=== PATIENT | female | born 1995 | race Caucasian/White ===

== ENCOUNTER 2022-08-14 16:48 | Emergency (ER) | payer OTHER ==
[~2022-08-14] VITALS: Ht 154.9 cm; Wt 80.7 kg
[2022-08-14 16:55] VITALS: BP 118/56
--- NOTE | 2022-08-14 17:04 | NUR ---
Patient being evaluated by DR VOGEL at TRIAGE ROOM.
[2022-08-14] MEDS ORDERED: METOCLOPRAMIDE 10 MG TAB PO ONE (17:15)
[2022-08-14] MEDS ORDERED: KETOROLAC 15 MG/ML VIAL IM ONE (17:15)
--- NOTE | 2022-08-14 17:23 | NUR ---
PT TAKEN TO X RAY
[2022-08-14 17:27] LABS: BASOPHILS % (AUTO) 0.3 % (0.0-2.0); EOSINOPHILS # (AUTO) 0.1 K/uL (0-0.4); EOSINOPHILS % (AUTO) 0.9 % (0.0-4.0); HEMATOCRIT 36.4 % (36-48); HEMOGLOBIN 12.5 g/dL (12.0-16.0); LYMPHOCYTES # (AUTO) 2.1 K/uL (2.5-16.5); LYMPHOCYTES % (AUTO) 22.3 % (20.5-51.1); MEAN CORPUSCULAR HEMOGLOBIN 31 pg (27-31); MEAN CORPUSCULAR HGB CONC 34 g/dL (33-37); MEAN CORPUSCULAR VOLUME 88.4 fL (80-94); MONOCYTES # (AUTO) 0.6 K/uL (0.8-1.0); MONOCYTES % (AUTO) 6.7 % (1.7-9.3); NEUTROPHILS # (AUTO) 6.7 K/uL (1.8-7.7); NEUTROPHILS % (AUTO) 69.8 % (42.2-75.2); PLATELET COUNT (AUTO) 261 K/uL (140-450); RED BLOOD CELL COUNT(AUTO) 4.12 MIL/uL (4.20-5.40); RED CELL DISTRIBUTION WIDTH 13.5 % (11.6-13.7); WHITE BLOOD COUNT (AUTO) 9.6 K/uL (4.8-10.8)
[2022-08-14 17:53] LABS: ALBUMIN 3.6 g/dL (3.4-5.0); ANION GAP 13.9 (8-16); ASPARTATE AMINOTRANSFERASE 14 U/L (15-37); CARBON DIOXIDE 24.7 mmol/L (21-32); CHLORIDE 106 mmol/L (98-107); CREATININE 0.9 mg/dL (0.6-1.3); GFR ARICAN-AMERICAN 95 mL/min (>90); GLUCOSE 96 mg/dL (74-106); POTASSIUM 3.6 mmol/L (3.5-5.1); SODIUM SERUM 141 mmol/L (136-145); TOTAL BILIRUBIN 0.4 mg/dL (0.0-1.0); UREA NITROGEN, BLOOD 10 mg/dL (7-18)
--- NOTE | 2022-08-14 18:00 | NUR ---
PT AMBULATED TO ROOM 7
--- NOTE | 2022-08-14 18:35 | NUR ---
27YO FEMALE PT BIBA C/O CHEST PAIN XTODAY. PT STATES HAVING 10/10 TIGHT CHEST PAIN, SOB , NAUSEA AND NUMBING. STATES RELIEF AT THIS TIME - /10 . STATES HAVING EPISODES WHEN HAVING ANXIETY THAT WILL LAST ABOUT 1 HR. DENIES V/D, FEVER OR CHILLS. PT AAOX4, NO VISIBLE DISTRESS. RESPIRATIONS EVEN AND UNLABORED. 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 HX:ANXIETY, DEPRESSION , MIGRAINE NKA
--- NOTE | 2022-08-14 19:20 | NUR ---
REPORT GIVEN TO JARRED LEHMAN. TRANSFER OF CARE AT THIS TIME
--- NOTE | 2022-08-14 19:36 | NUR ---
PT TO [facility] WAITING FOR REPEAT TROP
--- NOTE | 2022-08-14 20:18 | NUR ---
Patient discharged with v/s stable. Written and verbal after care instructions given and explained. Patient verbalized understanding. Ambulatory with steady gait. All questions addressed prior to discharge. Advised to follow up with PMD.
== END 2022-08-14 20:18 | disposition home or self-care (01) ==
LOC: MED 16:48
DX: R51.9 Headache, unspecified (principal); R07.9 Chest pain, unspecified; F41.0 Panic disorder [episodic paroxysmal anxiety]; G43.909 Migraine, unspecified, not intractable, without status migrainosus
CPT/HCPCS: 36415; 71045; 80053; 81002; 81025; 84484; 85025; 93005; 96372; 99285; J1885; J8597; Q0163